=== PATIENT | male | born 2000 | race Caucasian/White ===

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

== ENCOUNTER 2022-01-26 08:31 | Emergency (ER) | payer OTHER ==
[2022-01-26] MEDS ORDERED: IBUPROFEN 600 MG TABLET (FP) PO ONE (09:22)
[2022-01-26 09:30] VITALS: BP 123/73; PULSE 117; RESP 20; TEMP 99.3; BMI 32.8
== END 2022-01-26 10:00 | disposition home or self-care (01) ==
LOC: JER 08:31 → JERFT 08:31
DX: U07.1 COVID-19 (principal)
CPT/HCPCS: 0241U-QW; 87651; 99283-25